=== PATIENT | female | born 1990 | race Caucasian/White ===

== ENCOUNTER 2021-11-24 20:40 | Emergency (ER) | payer OTHER, SELFPAY ==
[2021-11-24 20:46] VITALS: BP 127/79; PULSE 74; RESP 14; TEMP 36.3; O2SAT 100
--- NOTE | 2021-11-24 21:08 | ED.GENADULT ---
HPI - General Adult General Chief complaint: Unspecified Stated complaint: COVID exposure with a cough Time Seen by Provider: 11/24/21 20:57 Source: patient Mode of arrival: ambulatory Limitations: no limitations History of Present Illness HPI narrative: This is a 31 year old female who presents for evaluation of covid exposure. Patient states she was exposed to covid 6 days ago. They found their nephew was covid positive. She reports her and son have dry cough now, so they want to get checked for covid. Patient states she is also 10 weeks . She denies fever, chills, chest pain, shortness of breath, abdominal pain, vomiting or vaginal bleeding. She was tested at [facility] 2 days ago but they do not know results. They are also going on a Cruise this weekend. Related Data Home Medications Medication Instructions Recorded Confirmed cetirizine 10 mg capsule 10 mg PO DAILY PRN 08/24/21 sertraline 50 mg tablet 75 mg PO DAILY tablet 08/24/21 prenat.vits,elfego,eyb-gehl-exrva 1 tablet PO DAILY 11/24/21 11/24/21 [ Vitamin] Allergies Allergy/AdvReac Type Severity Reaction Status Date / Time No Known Allergies Allergy Verified 11/24/21 20:59 Review of Systems Review of Systems: All systems reviewed & are unremarkable except as noted in HPI and below Constitutional: Constitutional: Denies body ache(s), Denies chills and Denies fever(s) Cardiovascular: Cardiovascular: Denies dyspnea Respiratory: Respiratory: Reports cough and Denies hemoptysis Gastrointestinal: Gastrointestinal: Denies abdominal pain Genitourinary: Genitourinary: Denies nocturia PMF Past Medical History Medical History Anxiety Seasonal allergies Social History Social History Alcohol intake: current Substance use: never Exam Narrative: GENERAL: Well-appearing, well-nourished, and in no acute distress. HEAD: Normocephalic, atraumatic EYES: PERRLA and EOMI, conjunctiva clear without discharge EARS: TM's clear bilaterally without erythema or dullness NOSE: Nares clear, no rhinorrhea or epistaxis THROAT:Mucous membranes moist, Oropharynx normal without erythema, exudate, peritonsillar swelling or fluctuance NECK: Supple, without lymphadenopathy or mass RESPIRATORY: No respiratory distress, Airway patent, Respirations non-labored, Clear to auscultation without rales, rhonchi or wheeze HEART: Regular rate and rhythm. No murmur heard. Normal peripheral pulses. EXTREMITIES: No edema, normal strength with full range of motion. SKIN: Warm, dry, normal color without rash NEURO: Alert and oriented x3. CN 2-12 grossly intact. No focal deficits. PSYCH: Normal mood and affect. Course Reevaluation(s) Reevaluation #1: I Discussed with patient that we could test for covid. They will need to follow up on results in [facility] and they should assume they have covid as well for now. Date: 11/24/21 Time: 21:13 Vital Signs Vital signs: Vital Signs Temperature 97.3 F L 11/24/21 20:46 Pulse Rate 74 11/24/21 20:46 Respiratory Rate 14 11/24/21 20:46 Blood Pressure 127/79 11/24/21 20:46 Pulse Oximetry 100 11/24/21 20:46 Temperature 97.3 F L 11/24/21 20:46 Pulse Rate 74 11/24/21 20:46 Respiratory Rate 14 11/24/21 20:46 Blood Pressure 127/79 11/24/21 20:46 Pulse Oximetry 100 11/24/21 20:46 Medical Decision Making Vital Signs Vital Signs: Vital Signs Temperature 97.3 F L 11/24/21 20:46 Pulse Rate 74 11/24/21 20:46 Respiratory Rate 14 11/24/21 20:46 Blood Pressure 127/79 11/24/21 20:46 Pulse Oximetry 100 11/24/21 20:46 Temperature 97.3 F L 11/24/21 20:46 Pulse Rate 74 11/24/21 20:46 Respiratory Rate 14 11/24/21 20:46 Blood Pressure 127/79 11/24/21 20:46 Pulse Oximetry 100 11/24/21 20:46 Lab Data Labs: Lab Result
[2021-11-24 22:04] LABS: SARS-CoV-2 RNA PCR Negative
== END 2021-11-24 21:43 | disposition home or self-care (01) ==
LOC: ANHED 21:25
PROVIDERS: Emergency Provider General Practice; PCP Registered Nurse
DX: O99.891 Other specified diseases and conditions complicating pregnancy (principal); R05.9 Cough, unspecified; Z20.822 Contact with and (suspected) exposure to COVID-19; O99.341 Other mental disorders complicating pregnancy, first trimester; F41.9 Anxiety disorder, unspecified; Z3A.10 10 weeks gestation of pregnancy
CPT/HCPCS: 99283; C9803; U0003; U0005